=== PATIENT | female | born 1955 | race Caucasian/White ===

== ENCOUNTER 2024-10-13 17:34 | Emergency (ER) | payer MEDICARE, OTHER ==
[~2024-10-13] VITALS: Ht 160 cm; Wt 97.5 kg
[2024-10-13 17:40] VITALS: PULSE 87; RESP 20; TEMP 98.7
[2024-10-13 19:59] VITALS: BP 143/72; PULSE 84; RESP 18; TEMP 98.4; O2SAT 98
== END 2024-10-13 19:59 | disposition home or self-care (01) ==
LOC: FSED 17:40
DX: S00.83XA Contusion of other part of head, initial encounter (principal); S80.02XA Contusion of left knee, initial encounter; S63.592A Other specified sprain of left wrist, initial encounter; W01.0XXA Fall on same level from slipping, tripping and stumbling without subsequent striking against object, initial encounter; Y93.01 Activity, walking, marching and hiking; Y92.89 Other specified places as the place of occurrence of the external cause
CPT/HCPCS: 70450; 99284